=== PATIENT | female | born 1980 ===

== ENCOUNTER → 2017-05-24 | Outpatient (CLI) | payer BC, OTHER ==
[2017-05-24 18:06] LABS: BASO % 0.9 %; BASO ABS # 0.09 K/uL (0-0.2); EOS % 2.3 %; EOS ABS # 0.23 K/uL (0-0.5); HEMATOCRIT 40.5 % (37-47); HEMOGLOBIN 14.2 g/dL (12.0-16.0); IG# 0.09 K/uL (0.00-0.02); LYMPH % 33.4 %; MEAN CELL VOLUME 90.8 fL (80-100); MEAN CORPUSCULAR HEMOGLOBIN 31.8 pg (25-34); MEAN CORPUSCULAR HGB CONC 35.1 g/dl (32-36); MEAN PLATELET VOLUME 9.5 fL (7.4-10.4); MONO % 6.3 %; MONO ABS # 0.62 K/uL (0.11-0.59); NEUT % 56.2 %; NEUT ABS # 5.56 K/uL (1.4-6.5); PLATELET COUNT 459 K/uL (130-400); RED CELL DISTRIBUTION WIDTH CV 12.3 % (11.5-14.5); WHITE BLOOD COUNT 9.89 K/uL (4.8-10.8)
[2017-05-24 18:12] LABS: ALT/SGPT 40 U/L (12-78); BLOOD UREA NITROGEN 11 mg/dl (7-18); CALCIUM 8.9 mg/dl (8.5-10.1); CARBON DIOXIDE 26 mmol/L (21-32); CHOLESTEROL 217 mg/dl (0-200); CREATININE 0.74 mg/dl (0.60-1.20); GLUCOSE 111 mg/dl (70-99); POTASSIUM 3.7 mmol/L (3.5-5.1); SODIUM 135 mmol/L (136-145)
[2017-05-24 18:39] LABS: ALKALINE PHOSPHATASE 56 U/L (45-117); AST/SGOT 22 U/L (15-37); TOTAL PROTEIN 7.7 gm/dl (6.4-8.2)
== END | disposition home or self-care (01) ==
LOC: C.LABMFLN 16:15
PROVIDERS: ATTEND Family Medicine
DX: I10 Essential (primary) hypertension (principal); E78.5 Hyperlipidemia, unspecified